=== PATIENT | female | born 1960 | race Caucasian/White ===

== ENCOUNTER 2018-08-29 07:58 | Day surgery (SDC) | payer BC ==
[2018-08-29] MEDS ORDERED: PROPOFOL 40 ML (10:08)
== END 2018-08-29 11:08 | disposition home or self-care (01) ==
LOC: GIL 07:58
DX: Z12.11 Encounter for screening for malignant neoplasm of colon (principal); K29.30 Chronic superficial gastritis without bleeding; D12.5 Benign neoplasm of sigmoid colon; D12.3 Benign neoplasm of transverse colon; K64.8 Other hemorrhoids; I10 Essential (primary) hypertension
CPT/HCPCS: 43239; 88305; 88312